=== PATIENT | female | born 1940 | race Caucasian/White ===

== ENCOUNTER → 2019-06-01 | Outpatient (CLI) | payer OTHER ==
[~2019-06-01] MED LIST: ACTOS 30 MG TAB30 M1 PO; ASPIR 8181 MG PO; ATORVASTATIN CA40 MG PO; AZELASTINE137 MCG/0. NASAL; B12INJ IM; CALCIUM 600 +1 EA11 PO; CHROMIUM PICO400 MCG PO; COZAAR 50 MG TA50 M2 PO; FISH OIL 1,001000 M2 PO; GLIPIZIDE-METF1 EAC2 PO; IRON325 PO; LEVOTHYROXIN0.112 M1 PO; MAGOX 400400 MG PO; PIOGLITAZONE15 MG PO; TUMS PO; UNICOMPLEX M TA1 TA1 PO; ZYRTEC10 MG PO
== END ==
LOC: M.RAD 12:21
DX: R05 Cough (principal); Z87.891 Personal history of nicotine dependence

== ENCOUNTER → 2020-09-08 | Day surgery (SDC) | payer OTHER ==
[~2020-09-08] MED LIST changes: +COZAAR 50 MG TA50 M1 PO; -COZAAR 50 MG TA50 M2 PO; +LEVOTHYROXINE125 MC1 PO; +MULTIVITAMINS PO; +NORVASC10 MG PO; +OMEGA 3 500 SO1 EACH PO
[2020-09-08 09:11] LABS: HEMATOCRIT 38.8 % (37.0-47.0); MCH 29.4 pg (26.0-34.0); MCHC 33.6 g/dL (28.0-37.0); MCV 87.3 fL (80.0-100.0); MPV 6.9 fl. (7.2-11.1); RBC 4.44 mil/uL (4.20-5.00); RDW-CV 14.7 % (10.5-14.5); WBC 5.8 thou/uL (4.0-11.0)
[2020-09-08 09:17] LABS: CALCIUM 8.9 mg/dL (8.5-10.1); CREATININE 1.4 mg/dL (0.6-1.3)
[2020-09-08 10:39] LABS: ALBUMIN 3.6 g/dL (3.4-5.0); DIRECT BILIRUBIN 0.1 mg/dL (<0.1-0.3); TOTAL BILIRUBIN 0.7 mg/dL (<0.1-1.0); TOTAL PROTEIN 7.4 g/dL (6.4-8.2)
== END | disposition home or self-care (01) ==
LOC: M.SUR 04:45
PROVIDERS: ATTEND Internal Medicine Gastroenterology
DX: K31.819 Angiodysplasia of stomach and duodenum without bleeding (principal); I10 Essential (primary) hypertension; I35.0 Nonrheumatic aortic (valve) stenosis; Z98.890 Other specified postprocedural states; Z79.899 Other long term (current) drug therapy